=== PATIENT | female | born 1975 | race Caucasian/White ===

== ENCOUNTER → 2016-05-05 | Outpatient (CLI) | payer MEDICAID, OTHER ==
[~2016-05-05] MED LIST: ACYC400T PO; AMOX875T2 PO
--- NOTE | 2016-05-05 15:44 | EKG ---
Date Performed: 05/05/2016 Time Performed: 11:59:22 PTAGE: 40 years EKG: Sinus bradycardia. Possible anterior infarct - age undetermined Abnormal ECG NO PREVIOUS TRACING DOCTOR: Jazmyne Avitia Interpretating Date/Time 05/05/2016 15:40:50
== END ==
LOC: HCAV 11:30
PROVIDERS: ATTEND Nurse Practitioner Family
DX: Z41.9 Encounter for procedure for purposes other than remedying health state, unspecified (principal); R94.31 Abnormal electrocardiogram [ECG] [EKG]
CPT/HCPCS: 93005